=== PATIENT | female | born 1990 | race Caucasian/White ===

== ENCOUNTER 2020-08-22 06:56 | Inpatient (IN) | payer SELFPAY ==
[2020-08-22] MEDS ORDERED: Nalbuphine 10 MG/1 ML Vial IVPUSH PRN (07:02)
[2020-08-22] MEDS ORDERED: Ondansetron 4 MG/2 ML SDV IVPUSH PRN (07:02)
[2020-08-22] MEDS ORDERED: Sodium Chloride 0.9% 10 ML Syringe FLUSH PRN (07:02)
--- NOTE | 2020-08-22 07:05 | PCM.LDHP ---
L&D History of Present Illness - General Date of Service: 08/22/20 Admit Problem/Dx: Patient Status Order with Admit Dx/Problem 08/22/20 07:03 Patient Status [ADT] Routine Admission Diagnosis/Problem Admission Diagnosis/Problem Normal labor Source of Information: Patient History Limitations: Reports: No Limitations - History of Present Illness Introduction:: Patient is a 29 y/o at 40 1/7 wk who presents for IOL. Did, however, start sophia this AM. No LOF. No other concerns. - Related Data Allergies/Adverse Reactions: Allergies Allergy/AdvReac Type Severity Reaction Status Date / Time No Known Allergies Allergy Verified 10/31/16 14:03 Home Medications: Home Meds Vit Calc,Iron,Folic [ Vitamins] 1 each PO DAILY 10/31/16 [History] Past Medical History Cardiovascular History: Reports: Other (See Below) (Hx of gestational HTN) [employer] History: Reports: : 7 Para: 5 LMP (Approximate): - Past Surgical History Other Surgical History Comment: No past surgical history Social & Family History - Family History Family Medical History: No Pertinent Family History - Tobacco Use Tobacco Use Status *Q: Never Tobacco User - Alcohol Use Alcohol Use History: No - Recreational Drug Use Recreational Drug Use: No H&P Review of Systems - Review of Systems: Review Of Systems: See Below General: Reports: No Symptoms Pulmonary: Reports: No Symptoms Cardiovascular: Reports: No Symptoms Gastrointestinal: Reports: Abdominal Pain (some contractions starting this AM) Genitourinary: Reports: No Symptoms Musculoskeletal: Reports: No Symptoms Neurological: Reports: No Symptoms L&D Exam - Exam Exam: See Below - OB Specific Contraction Intensity: Mild Movement: Active Heart Tones: Present Heart Tones per Min: 140 Heart Rate (FHR) Variability: Moderate (6-25 bmp) Presentation: Vertex - Luevano Score Luevano Score Cervix Position: Midposition Luevano Score Consistency: Soft Luevano Score Effacement: 51-70% Luevano Score Dilation: 3-4 cm Luevano Score Infant's Station: -2 Luevano Score Total: 8 - Exam General: Alert, Oriented, Cooperative Lungs: Clear to Auscultation, Normal Respiratory Effort Cardiovascular: Regular Rate, Regular Rhythm GI/Abdominal Exam: Soft, Non-Tender Genitourinary: Normal external exam Extremities: Normal Inspection Skin: Warm, Dry, Intact - Patient Data Result Diagrams: 08/22/20 07:25 - Problem List (1) 40 weeks gestation of SNOMED Code(s): 56176288 ICD Code: Z3A.40 - 40 WEEKS GESTATION OF Status: Acute Current Visit: Yes Problem List Initiated/Reviewed/Updated: Yes Orders Last 24hrs: Active Orders 24 hr Category Date Time Status Patient Status [ADT] Routine ADT 08/22/20 07:03 Ordered Activity as Tolerated [RC] PFP Care 08/22/20 07:02 Ordered Communication Order [RC] ASDIRECTED Care 08/22/20 07:02 Ordered Communication Order [RC] ASDIRECTED Care 08/22/20 07:02 Ordered Heart Tones [RC] ASDIRECTED Care 08/22/20 07:03 Ordered Non Stress Test [RC] PER UNIT ROUTINE Care 08/22/20 07:02 Ordered Notify Provider [RC] ASDIRECTED Care 08/22/20 07:02 Ordered Notify Provider [RC] PRN Care 08/22/20 07:02 Ordered Peripheral IV Care [RC] . DIRECTED Care 08/22/20 07:03 Ordered Vaginal Exam [RC] ASDIRECTED Care 08/22/20 07:02 Ordered Vital Signs [RC] PER UNIT ROUTINE Care 08/22/20 07:02 Ordered Regular Diet [DIET] Diet 08/22/20 Breakfast Ordered CBC W/O DIFF,HEMOGRAM [HEME] Routine Lab 08/22/20 07:02 Ordered CORONAVIRUS COVID-19 RUBA [MOLEC] Routine Lab 08/22/20 07:05 Ordered RAPID PLASMA REAGIN,RPR [CHEM] Routine Lab 08/22/20 07:02 Ordered TYPE AND SCREEN [BBK] Routine Lab 08/22/20 07:02 Ordered Lactated Ringers [Ringers, Lactated] 1,000 ml Med 08/22/20 07:15 Ordered IV ASDIRECTED Nalbuphine [Nubain] Med 08/22/20 07:02 Ordered 10 mg IVPUSH Q2H PRN Ondansetron [Zofran] Med 08/22/20 07:02 Ordered 4 mg IVPUSH Q4H PRN Oxytocin/Lactated Ringers [Pitocin in LR 10 Units/1,000 Med 08/22/20 07:15 Ordered ML] 10 unit in 1,000 ml IV .CONTINUOUS Oxytocin/Lactated Ringers [Pitocin in LR 10 Units/1,000 Med 08/22/20 07:15 Ordered ML] 10 unit in 1,000 ml IV TITRATE Sodium Chloride 0.9% [Saline Flush] Med 08/22/20 07:02 Ordered 10 ml FLUSH ASDIRECTED PRN Electronic Heart Tones Ext w TOCO [WOMSER] Oth 08/22/20 07:02 Ordered Routine Electronic Heart Tones Internal [WOMSER] Per Unit Ot 08/22/20 07:02 Ordered Routine Peripheral IV Insertion Adult [OM.PC] Routine Oth 08/22/20 07:02 Ordered Resuscitation Status Routine Resus Stat 08/22/20 07:02 Ordered Medication Orders Lactated Ringer's (Ringers, Lactated) 1,000 mls @ 100 mls/hr IV ASDIRECTED [facility] Oxytocin/Lactated Ringer's (Pitocin In Lr 10 Units/1,000 Ml) 10 unit in 1,000 mls @ 500 mls/hr IV .CONTINUOUS [facility] Oxytocin/Lactated Ringer's (Pitocin In Lr 10 Units/1,000 Ml) 10 unit in 1,000 mls @ 12 mls/hr IV TITRATE [facility]; Protocol Nalbuphine HCl (Nubain) 10 mg IVPUSH Q2H PRN PRN Reason: Pain Ondansetron HCl (Zofran) 4 mg IVPUSH Q4H PRN PRN Reason: Nausea/Vomiting Sodium Chloride (Saline Flush) 10 ml FLUSH ASDIRECTED PRN PRN Reason: Keep Vein Open Assessment/Plan Comment:: * Labs * GBS negative, no need for antibiotics * Pitocin for IOL, AROM if needed * Pain management per patient preference * Anticipate
[2020-08-22] MEDS ORDERED: Oxytocin/Lactated Ringers 10 UNIT/1,000 ML BAG IV SCH ×2 (07:15)
[2020-08-22] MEDS ORDERED: Lactated Ringers 1,000 ML IV SCH (07:15)
[2020-08-22] MEDS ORDERED: fentaNYL 100 MCG/2 ML SDV EPIDUR PRN (07:16)
[2020-08-22] MEDS ORDERED: Bupivacaine/fentaNYL/NS 100 ML Bag EPIDUR PRN (07:16)
[2020-08-22] MEDS ORDERED: diphenhydrAMINE 50 MG/ML SDV IVPUSH PRN (07:16)
[2020-08-22] MEDS ORDERED: ePHEDrine 50 MG/ML SDV IVPUSH PRN (07:16)
--- NOTE | 2020-08-22 10:36 | PCM.DEL ---
L & D Note - General Info Date of Service: 08/22/20 - Delivery Note Labor: Augmented by Oxytocin Delivery Outcome: Livebirth Delivery Method: Spontaneous Vaginal Delivery-Single Delivery Mode: Spontaneous Presentation: Left Occiput Anterior (DAQUAN) Nuchal Cord: None Anesthesia Type: None Amniotic Fluid Description: Clear Episiotomy Type: None Laceration: None Placenta: Intact, Spontaneous Cord: 3 Vessels Estimated Blood Loss: 250 Resuscitation Needed: Yes : Bulb Syringe, Stimulated, Warmed, [place] Used Delivery Comments (Free Text/Narrative):: Patient found to be complete and began pushing. With maternal pushing effort head delivered from DAQUAN presentation. No nuchal cord present. With gentle downward traction the shoulders and body delivered. placed on maternal abdomen. Cord clamped and cut. Cord blood obtained. Placenta allowed time to separate and expelled intact. Inspection of perineum showed no lacerations - General Info Date of Service: 08/22/20 - Patient Data Vitals - Most Recent: Last Vital Signs Temp 36.8 C 08/22/20 07:02 Pulse 83 08/22/20 07:02 Resp 16 08/22/20 07:02 BP 140/90 08/22/20 07:02 Pulse Ox Weight - Most Recent: 94.801 kg - Problem List & Annotations (1) 40 weeks gestation of SNOMED Code(s): 81926548 Code(s): Z3A.40 - 40 WEEKS GESTATION OF Status: Acute Current Visit: Yes (2) Vaginal delivery SNOMED Code(s): 647880281 Code(s): O80 - ENCOUNTER FOR FULL-TERM UNCOMPLICATED DELIVERY Status: Acute Current Visit: Yes - Problem List Review Problem List Initiated/Reviewed/Updated: Yes - My Orders Last 24 Hours: My Active Orders 08/22/20 Breakfast Regular Diet [DIET] 08/22/20 07:02 Activity as Tolerated [RC] PFP Communication Order [RC] ASDIRECTED Communication Order [RC] ASDIRECTED Non Stress Test [RC] PER UNIT ROUTINE Notify Provider [RC] ASDIRECTED Notify Provider [RC] PRN Vaginal Exam [RC] ASDIRECTED Vital Signs [RC] PER UNIT ROUTINE Nalbuphine [Nubain] 10 mg IVPUSH Q2H PRN Ondansetron [Zofran] 4 mg IVPUSH Q4H PRN Sodium Chloride 0.9% [Saline Flush] 10 ml FLUSH ASDIRECTED PRN Electronic Heart Tones Ext w TOCO [WOMSER] Routine Electronic Heart Tones Internal [WOMSER] Per Unit Routine Peripheral IV Insertion Adult [OM.PC] Routine Resuscitation Status Routine 08/22/20 07:03 Patient Status [ADT] Routine Heart Tones [RC] ASDIRECTED 08/22/20 07:15 Lactated Ringers [Ringers, Lactated] 1,000 ml IV ASDIRECTED Oxytocin/Lactated Ringers [Pitocin in LR 10 Units/1,000 ML] 10 unit in 1,000 ml IV .CONTINUOUS Oxytocin/Lactated Ringers [Pitocin in LR 10 Units/1,000 ML] 10 unit in 1,000 ml IV TITRATE 08/22/20 07:25 RAPID PLASMA REAGIN,RPR [CHEM] Routine 08/22/20 09:32 PATIENT RETYPE [BBK] Routine - Assessment Assessment:: PPD#0 - Plan Plan:: * Routine cares * Encourage breast feeding * Discharge home in 1-2 days
[2020-08-22] MEDS ORDERED: Witch Hazel Medicated Pads 40/Jar TOP PRN (11:35)
[2020-08-22] MEDS ORDERED: Docusate Sodium 100 MG Cap PO PRN (11:35)
[2020-08-22] MEDS ORDERED: Benzocaine/Menthol 20%-0.5% Spray 56 GM Canister TOP PRN (11:35)
[2020-08-22] MEDS: Ibuprofen 600 MG Tab PO PRN (11:44)
[2020-08-22] MEDS: Acetaminophen 325 MG Tab PO PRN (21:48)
--- NOTE | 2020-08-23 07:13 | PCM.PNPP ---
- General Info Date of Service: 08/23/20 Functional Status: Reports: Pain Controlled, Tolerating Diet, Ambulating, Urinating - Review of Systems General: Reports: No Symptoms Pulmonary: Reports: No Symptoms Cardiovascular: Reports: No Symptoms Gastrointestinal: Reports: No Symptoms Genitourinary: Reports: No Symptoms Musculoskeletal: Reports: Back Pain Neurological: Reports: No Symptoms - Patient Data Vital Signs - Most Recent: Last Vital Signs Temp 36.9 C 08/23/20 03:22 Pulse 63 08/23/20 03:22 Resp 16 08/23/20 03:22 BP 114/63 08/23/20 03:22 Pulse Ox 97 08/23/20 03:22 Weight - Most Recent: 94.801 kg Lab Results - Last 24 Hours: Laboratory Results - last 24 hr 08/22/20 08/22/20 08/22/20 Range/Units 07:25 07:25 07:25 WBC 10.86 H (3.98-10.04) K/mm3 RBC 4.57 (3.98-5.22) M/mm3 Hgb 14.1 D (11.2-15.7) gm/dl Hct 41.9 (34.1-44.9) % MCV 91.7 D (79.4-94.8) fl MCH 30.9 (25.6-32.2) pg MCHC 33.7 (32.2-35.5) g/dl RDW Std Deviation 44.4 (36.4-46.3) fL Plt Count 245 (182-369) K/mm3 MPV 10.3 (9.4-12.3) fl RPR Non-reactive (NONREACTIVE) SARS-CoV-2 RNA (RUBA) (NEGATIVE) Blood Type O POSITIVE Gel Antibody Screen Negative 08/22/20 Range/Units 07:40 WBC (3.98-10.04) K/mm3 RBC (3.98-5.22) M/mm3 Hgb (11.2-15.7) gm/dl Hct (34.1-44.9) % MCV (79.4-94.8) fl MCH (25.6-32.2) pg MCHC (32.2-35.5) g/dl RDW Std Deviation (36.4-46.3) fL Plt Count (182-369) K/mm3 MPV (9.4-12.3) fl RPR (NONREACTIVE) SARS-CoV-2 RNA (RUBA) Negative (NEGATIVE) Blood Type Gel Antibody Screen Med Orders - Current: Current Medications Acetaminophen (Tylenol) 650 mg PO Q4H PRN PRN Reason: mild pain or fever Last Admin: 08/22/20 21:48 Dose: 650 mg Documented by: Benzocaine/Menthol (Dermoplast Pain Relief [place]) 0 gm TOP ASDIRECTED PRN PRN Reason: Perineal Comfort Measure Docusate Sodium (Colace) 100 mg PO BID PRN PRN Reason: Constipation Ibuprofen (Motrin) 600 mg PO Q6H PRN PRN Reason: Mild pain or fever Last Admin: 08/22/20 11:44 Dose: 600 mg Documented by: Gail Cao) 1 pad TOP ASDIRECTED PRN PRN Reason: Perineal Comfort Measure Discontinued Medications Diphenhydramine HCl (Benadryl) 25 mg IVPUSH Q6H PRN PRN Reason: pruritis Ephedrine Sulfate (Ephedrine Sulfate) 5 mg IVPUSH ASDIRECTED PRN PRN Reason: Hypotension Fentanyl (Sublimaze) 100 mcg EPIDUR Q3H PRN PRN Reason: Pain Fentanyl/Bupivacaine HCl (Fentanyl/Bupivacaine/Ns 2 Mcg-0.125% 100 Ml) 100 ml EPIDUR ASDIRECTED PRN PRN Reason: Pain Lactated Ringer's (Ringers, Lactated) 1,000 mls @ 100 mls/hr IV ASDIRECTED [facility] Last Admin: 08/22/20 08:10 Dose: 100 mls/hr Documented by: Oxytocin/Lactated Ringer's (Pitocin In Lr 10 Units/1,000 Ml) 10 unit in 1,000 mls @ 500 mls/hr IV .CONTINUOUS [facility] Oxytocin/Lactated Ringer's (Pitocin In Lr 10 Units/1,000 Ml) 10 unit in 1,000 mls @ 12 mls/hr IV TITRATE [facility]; Protocol Last Admin: 08/22/20 08:10 Dose: 2 munits/min, 12 mls/hr Documented by: Nalbuphine HCl (Nubain) 10 mg IVPUSH Q2H PRN PRN Reason: Pain Ondansetron HCl (Zofran) 4 mg IVPUSH Q4H PRN PRN Reason: Nausea/Vomiting Sodium Chloride (Saline Flush) 10 ml FLUSH ASDIRECTED PRN PRN Reason: Keep Vein Open - Interaction Disposition, : [place] in Room with Family Infant Interaction: Holding Feeding: Breastfed ; Nursed Well Support Person: Significant Other - Recovery Exam Fundal Tone: Firm Fundal Level: At Umbilicus Fundal Placement: Midline Lochia Amount: Small Lochia Color: Rubra/Red Perineum Description: Intact, Minimal Bruising/Swelling Episiotomy/Laceration: None Bladder Status: Voiding Urinary Elimination: Voided - Exam General: Alert, Oriented, Cooperative GI/Abdominal Exam: Soft, Non-Tender Extremities: Normal Inspection Skin: Warm, Dry, Intact - Problem List & Annotations (1) 40 weeks gestation of SNOMED Code(s): 67266185 Code(s): Z3A.40 - 40 WEEKS GESTATION OF Status: Acute Current Visit: Yes (2) Vaginal delivery SNOMED Code(s): 942875014 Code(s): O80 - ENCOUNTER FOR FULL-TERM UNCOMPLICATED DELIVERY Status: Acute Current Visit: Yes - Problem List Review Problem List Initiated/Reviewed/Updated: Yes - My Orders Last 24 Hours: My Active Orders 08/22/20 07:02 Resuscitation Status Routine 08/22/20 Lunch Regular Diet [DIET] 08/22/20 11:35 Acetaminophen [TylenoL] 650 mg PO Q4H PRN Benzocaine/Menthol [Dermoplast Pain Relief [place]] See Dose Instructions TOP ASDIRECTED PRN Docusate Sodium [Colace] 100 mg PO BID PRN Ibuprofen [Motrin] 600 mg PO Q6H PRN witch Zbigniew [Tucks] 1 pad TOP ASDIRECTED PRN Heat Therapy [OM.PC] PRN 08/22/20 11:35 Activity as Tolerated [RC] PER UNIT ROUTINE Up ad Stella [RC] ASDIRECTED Vital Signs [RC] 03,09,15,21 Assess Lochia [WOMSER] Per Unit Routine Assess Uterine Involution [WOMSER] Per Unit Routine Breast Pump [WOMSER] Per Unit Routine Ice Therapy [OM.PC] Per Unit Routine Perineal Care [OM.PC] Per Unit Routine Peripheral IV Discontinue [OM.PC] Routine Sitz Bath [OM.PC] Per Unit Routine 08/23/20 07:11 Ready for Discharge [RC] PER UNIT ROUTINE 08/23/20 11:35 Heat Therapy [OM.PC] PRN - Assessment Assessment:: PPD#1 - Plan Plan:: * Routine cares * Encourage breast feeding * Declines smoking cessation * Discharge home today
--- NOTE | 2020-08-23 07:18 | PCM.DCSUM1 ---
Discharge Summary - Discharge Data Discharge Date: 08/23/20 Discharge Disposition: Home, Self-Care 01 Condition: Good - Referral to Home Health Primary Care Physician: PCP None - Discharge Diagnosis/Problem(s) (1) 40 weeks gestation of SNOMED Code(s): 16528841 ICD Code: Z3A.40 - 40 WEEKS GESTATION OF Status: Acute Current Visit: Yes (2) Vaginal delivery SNOMED Code(s): 485828737 ICD Code: O80 - ENCOUNTER FOR FULL-TERM UNCOMPLICATED DELIVERY Status: Acute Current Visit: Yes - Patient Summary/Data Complications: None Consults: None Recommended Follow-up Testing/Procedures: Follow up in 3 weeks Hospital Course: 29 y/o at 40 1/7 wks who presented for IOL, but was in early labor on admission. She was augmented with pitocin. Progressed well to complete dilation. Underwent an uncomplicated . See delivery note. did well. Was discharged home on PPD#1 - Patient Instructions Diet: Regular Diet as Tolerated Activity: As Tolerated Activity, Other: Pelvic rest for 6 weeks Driving: May Drive Today Showering/Bathing: May Shower Showering/Bathing, Other: May Bathe Notify Provider of: Fever, Increased Pain, Swelling and Redness, Drainage, Nausea and/or Vomiting - Discharge Plan *PRESCRIPTION DRUG MONITORING PROGRAM REVIEWED*: No *COPY OF PRESCRIPTION DRUG MONITORING REPORT IN PATIENT MC: No Home Medications: Home Meds Vit Calc,Iron,Folic [ Vitamins] 1 each PO DAILY 10/31/16 [History] Docusate Sodium [Colace] 100 mg PO BID PRN cap 08/22/20 [Rx] Ibuprofen [Motrin] 600 mg PO Q6H PRN tablet 08/22/20 [Rx] Patient Handouts: Steps to Quit Smoking Referrals: Marva Hwang MD [Physician] - (3 weeks for check ) - Discharge Summary/Plan Comment DC Time >30 min.: No - Patient Data Vitals - Most Recent: Last Vital Signs Temp 36.9 C 08/23/20 03:22 Pulse 63 08/23/20 03:22 Resp 16 08/23/20 03:22 BP 114/63 08/23/20 03:22 Pulse Ox 97 08/23/20 03:22 Weight - Most Recent: 94.801 kg Lab Results - Last 24 hrs: Laboratory Results - last 24 hr 08/22/20 08/22/20 08/22/20 Range/Units 07:25 07:25 07:25 WBC 10.86 H (3.98-10.04) K/mm3 RBC 4.57 (3.98-5.22) M/mm3 Hgb 14.1 D (11.2-15.7) gm/dl Hct 41.9 (34.1-44.9) % MCV 91.7 D (79.4-94.8) fl MCH 30.9 (25.6-32.2) pg MCHC 33.7 (32.2-35.5) g/dl RDW Std Deviation 44.4 (36.4-46.3) fL Plt Count 245 (182-369) K/mm3 MPV 10.3 (9.4-12.3) fl RPR Non-reactive (NONREACTIVE) SARS-CoV-2 RNA (RUBA) (NEGATIVE) Blood Type O POSITIVE Gel Antibody Screen Negative 08/22/20 Range/Units 07:40 WBC (3.98-10.04) K/mm3 RBC (3.98-5.22) M/mm3 Hgb (11.2-15.7) gm/dl Hct (34.1-44.9) % MCV (79.4-94.8) fl MCH (25.6-32.2) pg MCHC (32.2-35.5) g/dl RDW Std Deviation (36.4-46.3) fL Plt Count (182-369) K/mm3 MPV (9.4-12.3) fl RPR (NONREACTIVE) SARS-CoV-2 RNA (RUBA) Negative (NEGATIVE) Blood Type Gel Antibody Screen Med Orders - Current: Current Medications Acetaminophen (Tylenol) 650 mg PO Q4H PRN PRN Reason: mild pain or fever Last Admin: 08/22/20 21:48 Dose: 650 mg Documented by: Benzocaine/Menthol (Dermoplast Pain Relief [place]) 0 gm TOP ASDIRECTED PRN PRN Reason: Perineal Comfort Measure Docusate Sodium (Colace) 100 mg PO BID PRN PRN Reason: Constipation Ibuprofen (Motrin) 600 mg PO Q6H PRN PRN Reason: Mild pain or fever Last Admin: 08/22/20 11:44 Dose: 600 mg Documented by: Gail Ramirez ([facility]) 1 pad TOP ASDIRECTED PRN PRN Reason: Perineal Comfort Measure Discontinued Medications Diphenhydramine HCl (Benadryl) 25 mg IVPUSH Q6H PRN PRN Reason: pruritis Ephedrine Sulfate (Ephedrine Sulfate) 5 mg IVPUSH ASDIRECTED PRN PRN Reason: Hypotension Fentanyl (Sublimaze) 100 mcg EPIDUR Q3H PRN PRN Reason: Pain Fentanyl/Bupivacaine HCl (Fentanyl/Bupivacaine/Ns 2 Mcg-0.125% 100 Ml) 100 ml EPIDUR ASDIRECTED PRN PRN Reason: Pain Lactated Ringer's (Ringers, Lactated) 1,000 mls @ 100 mls/hr IV ASDIRECTED [facility] Last Admin: 08/22/20 08:10 Dose: 100 mls/hr Documented by: Oxytocin/Lactated Ringer's (Pitocin In Lr 10 Units/1,000 Ml) 10 unit in 1,000 mls @ 500 mls/hr IV .CONTINUOUS [facility] Oxytocin/Lactated Ringer's (Pitocin In Lr 10 Units/1,000 Ml) 10 unit in 1,000 mls @ 12 mls/hr IV TITRATE [facility]; Protocol Last Admin: 08/22/20 08:10 Dose: 2 munits/min, 12 mls/hr Documented by: Nalbuphine HCl (Nubain) 10 mg IVPUSH Q2H PRN PRN Reason: Pain Ondansetron HCl (Zofran) 4 mg IVPUSH Q4H PRN PRN Reason: Nausea/Vomiting Sodium Chloride (Saline Flush) 10 ml FLUSH ASDIRECTED PRN PRN Reason: Keep Vein Open
[2020-08-23] MEDS: Ibuprofen 600 MG Tab PO PRN (09:12)
[2020-08-23 10:17] VITALS: BP 129/89; PULSE 68
[2020-08-23] MEDS: Acetaminophen 325 MG Tab PO PRN (12:07)
== END 2020-08-23 12:30 | disposition home or self-care (01) | DRG 807 ==
LOC: JD.OB 06:56 → OBSVTOIN 10:24 → JD.OB 10:24
PROVIDERS: ADMIT Obstetrics & Gynecology; ATTEND Obstetrics & Gynecology
PROC: 10E0XZZ Delivery of Products of Conception, External Approach (ICD-10-PCS; principal; 2020-08-22)
DX: O80 Encounter for full-term uncomplicated delivery (principal); Z37.0 Single live birth; Z3A.40 40 weeks gestation of pregnancy; Z20.828 Contact with and (suspected) exposure to other viral communicable diseases
CPT/HCPCS: 36415; 59025; 59409; 85027; 86592; 86850; 86900; 86901; A9270-GY; J2590; J7120; U0002

== ENCOUNTER 2022-01-09 11:50 | Inpatient (IN) | payer MEDICAID ==
[2022-01-09] MEDS ORDERED: Ondansetron 4 MG/2 ML SDV IVPUSH PRN (12:47)
[2022-01-09] MEDS ORDERED: Sodium Chloride 0.9% 10 ML Syringe FLUSH PRN (12:47)
[2022-01-09] MEDS ORDERED: Nalbuphine 10 MG/1 ML Vial IVPUSH PRN (12:47)
[2022-01-09] MEDS ORDERED: Calcium Carbonate 500 MG Tab.Chew PO PRN (12:47)
[2022-01-09] MEDS ORDERED: Lactated Ringers 1,000 ML IV SCH (13:00)
[2022-01-09] MEDS ORDERED: Oxytocin/Lactated Ringers 10 UNIT/1,000 ML BAG IV SCH ×2 (13:00)
[2022-01-09] MEDS ORDERED: ePHEDrine 50 MG/ML SDV IVPUSH PRN (14:03)
[2022-01-09] MEDS ORDERED: diphenhydrAMINE 50 MG/ML SDV IVPUSH PRN (14:03)
[2022-01-09] MEDS ORDERED: fentaNYL 100 MCG/2 ML SDV EPIDUR PRN (14:03)
[2022-01-09] MEDS ORDERED: Bupivacaine/fentaNYL/NS 100 ML Bag EPIDUR PRN (14:03)
[2022-01-09] MEDS ORDERED: Benzocaine/Menthol 20%-0.5% Spray 78 GM Cannister TOP PRN (16:14)
[2022-01-09] MEDS ORDERED: Docusate Sodium 100 MG Cap PO PRN (16:14)
[2022-01-09] MEDS ORDERED: Acetaminophen 325 MG Tab PO PRN (16:14)
[2022-01-09] MEDS ORDERED: Witch Hazel Medicated Pads 40/Jar TOP PRN (16:14)
[2022-01-09] MEDS: Ibuprofen 600 MG Tab PO PRN (17:49)
[2022-01-09] MEDS ORDERED: Sodium Chloride 0.9% 10 ML Syringe FLUSH SCH (21:00)
[2022-01-10] MEDS: Ibuprofen 600 MG Tab PO PRN (09:32)
[2022-01-10 18:16] VITALS: BP 133/74; PULSE 72
== END 2022-01-10 16:45 | disposition home or self-care (01) | DRG 805 ==
LOC: JD.OB 11:50 → OBSVTOIN 15:45 → JD.OB 15:45
PROVIDERS: ADMIT Obstetrics & Gynecology; ATTEND Obstetrics & Gynecology
PROC: 10907ZC Drainage of Amniotic Fluid, Therapeutic from Products of Conception, Via Natural or Artificial Opening (ICD-10-PCS; principal; 2022-01-09)
PROC: 10E0XZZ Delivery of Products of Conception, External Approach (ICD-10-PCS; 2022-01-09)
DX: O48.0 Post-term pregnancy (principal); U07.1 COVID-19; Z37.0 Single live birth; O98.52 Other viral diseases complicating childbirth; O99.62 Diseases of the digestive system complicating childbirth; K21.9 Gastro-esophageal reflux disease without esophagitis; Z3A.41 41 weeks gestation of pregnancy; Z79.899 Other long term (current) drug therapy
CPT/HCPCS: 36415; 59025; 59409; 80306; 81001; 85025; 86592; 86850; 86900; 86901; A9270-GY; U0002

== ENCOUNTER 2025-08-02 06:24 | Inpatient (IN) | payer OTHER ==
[2025-08-02] MEDS ORDERED: Sodium Chloride 0.9% 10 ML Syringe FLUSH PRN (06:47)
[2025-08-02] MEDS ORDERED: Ondansetron 4 MG/2 ML SDV IVPUSH PRN (06:47)
[2025-08-02] MEDS ORDERED: Nalbuphine 10 MG/1 ML Vial IVPUSH PRN (06:47)
[2025-08-02] MEDS ORDERED: Lactated Ringers 1,000 ML IV SCH (07:00)
[2025-08-02] MEDS: Oxytocin/0.9 % Sodium Chloride 30 UNIT/500 ML BAG IV SCH (07:01)
[2025-08-02 07:03] LABS: BASOPHILS ABSOLUTE AUTO 0.1 K/mm3 (0.0-0.2); BASOPHILS PERCENT AUTO 0.4 % (0.0-1.0); EOSINOPHILS ABSOLUTE AUTO 0.1 K/mm3 (0.0-0.4); EOSINOPHILS PERCENT AUTO 0.5 % (0.0-6.0); IMMATURE GRAN ABSOLUTE AUTO 0.08 K/mm3 (0.00-0.05); IMMATURE GRAN PERCENT AUTO 0.5 % (0.0-0.4); LYMPHOCYTES ABSOLUTE AUTO 2.6 K/mm3 (1.0-4.8); LYMPHOCYTES PERCENT AUTO 17.6 % (24.0-44.0); MEAN PLATELET VOLUME 10.5 fl (9.4-12.3); MONOCYTES ABSOLUTE AUTO 0.8 K/mm3 (0.0-0.8); MONOCYTES PERCENT AUTO 5.7 % (0.0-8.0); NEUTROPHILS ABSOLUTE AUTO 11.0 K/mm3 (1.8-7.7); NEUTROPHILS PERCENT AUTO 75.3 % (41.0-71.0); NRBC ABSOLUTE 0.00 (0.00-0.02); NRBC PERCENT 0.0 % (0.0-0.2); PLATELET COUNT,PLT 274 K/mm3 (150-400); RED BLOOD CELL COUNT 4.85 M/mm3 (4.10-5.30); WHITE BLOOD CELL COUNT,WBC 14.57 K/mm3 (3.9-11.3)
[2025-08-02] MEDS: Witch Hazel Medicated Pads 40/Jar TOP PRN (08:51)
[2025-08-02] MEDS: Benzocaine/Menthol 20%-0.5% Spray 78 GM Cannister TOP PRN (08:52)
[2025-08-02] MEDS ORDERED: Sodium Chloride 0.9% 10 ML Syringe FLUSH SCH (09:00)
[2025-08-03 08:10] VITALS: BP 141/89; PULSE 77
== END 2025-08-03 09:05 | disposition home or self-care (01) | DRG 807 ==
LOC: JD.OBCHECK 06:24 → JD.OB 06:25 → OBSVTOIN 06:58 → JD.OBCHECK 07:05 → JD.OB 07:10
PROVIDERS: ADMIT Obstetrics & Gynecology; ATTEND Obstetrics & Gynecology
PROC: 10E0XZZ Delivery of Products of Conception, External Approach (ICD-10-PCS; principal; 2025-08-02)
DX: O42.02 Full-term premature rupture of membranes, onset of labor within 24 hours of rupture (principal); Z37.0 Single live birth; O99.214 Obesity complicating childbirth; O99.334 Smoking (tobacco) complicating childbirth; Z3A.39 39 weeks gestation of pregnancy
CPT/HCPCS: 36415; 59025; 59409; 85025; 86592; 86850; 86900; 86901; A9270-GY; J7999